=== PATIENT | male | born 1985 | race Caucasian/White ===

== ENCOUNTER 2017-01-13 16:01 | Emergency (ER) | payer MEDICAID ==
[~2017-01-13] VITALS: Ht 185.4 cm; Wt 134.7 kg
[2017-01-13 17:23] LABS: BASOPHIL % 0.5 % (0-2); PLATELET COUNT 180 x10^3mcL (130-400)
[2017-01-13 17:31] LABS: CARBON DIOXIDE 29.1 mmol/L (21-32); CHLORIDE SERUM 103 mmol/L (98-107); CREATININE SERUM 1.1 mg/dL (0.7-1.3); GFR1 > 60 mL/min; GLUCOSE SERUM 97 mg/dL (74-106); POTASSIUM SERUM 3.6 mmol/L (3.5-5.1); SODIUM SERUM 139 mmol/L (136-145)
[2017-01-13 18:40] VITALS: BP 135/81
== END 2017-01-13 18:40 | disposition home or self-care (01) ==
LOC: ED 16:01
PROVIDERS: Emergency Medicine
DX: E86.0 Dehydration (principal); B34.9 Viral infection, unspecified; H53.8 Other visual disturbances
CPT/HCPCS: 82962; J7030